=== PATIENT | male | born 1945 | race Caucasian/White ===

== ENCOUNTER 2020-09-10 11:19 | Emergency (ER) | payer OTHER, BC ==
[2020-09-10 11:58] VITALS: BP 0/0; PULSE 0; TEMP 97.2; BMI 25.8
== END 2020-09-10 13:43 | disposition expired ==
LOC: JER 11:19
DX: I46.9 Cardiac arrest, cause unspecified (principal); J96.90 Respiratory failure, unspecified, unspecified whether with hypoxia or hypercapnia
CPT/HCPCS: 82962; 99285-25